=== PATIENT | male | born 2005 | race Hispanic/Latino ===

== ENCOUNTER 2024-07-10 14:44 | Emergency (ER) | payer OTHER ==
[~2024-07-10] VITALS: Ht 172.7 cm; Wt 67.1 kg
[2024-07-10 15:44] LABS: RSV AMPLIFICATION NEGATIVE (NEGATIVE)
[2024-07-10 17:26] VITALS: BP 145/99; TEMP 98.5; O2SAT 100
== END 2024-07-10 17:27 | disposition home or self-care (01) ==
LOC: M ED 14:44
DX: U07.1 COVID-19 (principal)